=== PATIENT | female | born 1975 | race Caucasian/White ===

== ENCOUNTER 2021-07-27 09:59 | Emergency (ER) | payer OTHER ==
[~2021-07-27] VITALS: Ht 167.6 cm; Wt 92.5 kg
[2021-07-27 10:03] VITALS: BP 130/86
--- NOTE | 2021-07-27 10:10 | NUR ---
PT AMBULATED TO BED 9 WITH STEADY GAIT
--- NOTE | 2021-07-27 10:11 | NUR ---
45/F BIB SELF C/O LEFT SIDED NECK PAIN 6/10 SATYING STILL 10/10 WHEN MOVING X2 WEEKS RADIATING TO HER HEAD AND EAR. DENIES RECENT INJURY OR TRAUMA, DENIES TAKING MEDS FOR PAIN. DENIES DIZZINESS. STATES THAT SHE HAS BLURRING ON VISION, DENIES N/V. FULL ROM OF THE NECK NOTED. MEDHX: HTN, HYPERCHOLESTEROL, DEPRESSION, ANXIETY NKA
--- NOTE | 2021-07-27 10:29 | NUR ---
DR CARBAJAL AT BEDSIDE EVALUATING PT
[2021-07-27] MEDS ORDERED: PROCHLORPERAZINE 10 MG/2 ML VIAL IM ONE (10:40)
[2021-07-27] MEDS ORDERED: ACETAMINOPHEN EXTRA STRENGTH 500 MG TAB PO ONE (10:40)
[2021-07-27] MEDS ORDERED: KETOROLAC 15 MG/ML VIAL IM ONE (10:40)
--- NOTE | 2021-07-27 11:14 | NUR ---
PT VERBALIZED DECREASE IN PAIN SENSATION FROM 10/10 WHEN MOVING TO 5/10, PT ABLE TO PERFORM FULL ROM OF NECK WITH DECREASED PAIN
[2021-07-27 11:58] VITALS: BP 121/75
--- NOTE | 2021-07-27 13:56 | NUR ---
Patient discharged with v/s stable. Written and verbal after care instructions ABOUT CERVIOGENIC HEADACHE given and explained. Patient verbalized understanding. Ambulatory with steady gait. All questions addressed prior to discharge. Advised to follow up with PMD.
== END 2021-07-27 13:56 | disposition home or self-care (01) ==
LOC: MED 09:59
DX: R51.9 Headache, unspecified (principal); I10 Essential (primary) hypertension; F41.9 Anxiety disorder, unspecified; F32.9 Major depressive disorder, single episode, unspecified
CPT/HCPCS: 96372; 99284; J0780; J1885; Q0163

== ENCOUNTER 2022-11-18 12:38 | Emergency (ER) | payer OTHER ==
[~2022-11-18] VITALS: Ht 170.2 cm; Wt 97.5 kg
[2022-11-18 12:49] VITALS: BP 149/79; PULSE 75; RESP 14; TEMP 97.8; O2SAT 96
[2022-11-18] MEDS ORDERED: HYDROcodone/APAP 5/325 MG 1 TAB TAB PO ONE (13:55)
== END 2022-11-18 15:23 | disposition home or self-care (01) ==
LOC: MED 12:38
DX: S83.8X2A Sprain of other specified parts of left knee, initial encounter (principal); W18.30XA Fall on same level, unspecified, initial encounter; Y93.89 Activity, other specified; Y92.89 Other specified places as the place of occurrence of the external cause; Y99.8 Other external cause status
CPT/HCPCS: 73562; 99283

== ENCOUNTER 2023-03-06 14:55 | Emergency (ER) | payer OTHER ==
[~2023-03-06] VITALS: Ht 170.2 cm; Wt 97.1 kg
[2023-03-06 15:44] VITALS: BP 134/82; PULSE 69; RESP 20; TEMP 97.7; O2SAT 99
[2023-03-06] MEDS ORDERED: BPM/-9 PO (15:54)
[2023-03-06] MEDS ORDERED: SUD30 PO (15:55)
[2023-03-06] MEDS ORDERED: CETI10TA81 PO (15:55)
[2023-03-06 16:18] VITALS: BP 134/82; PULSE 69; RESP 20; TEMP 97.7; O2SAT 99
[2023-03-06 16:47] LABS: FLU A ANTIGEN negative (NEGATIVE); FLU B ANTIGEN negative (NEGATIVE)
== END 2023-03-06 16:19 | disposition home or self-care (01) ==
LOC: MED 14:55
DX: J20.9 Acute bronchitis, unspecified (principal); Z20.822 Contact with and (suspected) exposure to COVID-19; I10 Essential (primary) hypertension; J30.9 Allergic rhinitis, unspecified
CPT/HCPCS: 99283

== ENCOUNTER 2023-07-27 12:08 | Emergency (ER) | payer OTHER ==
[~2023-07-27] VITALS: Ht 170.2 cm; Wt 97.5 kg
[~2023-07-27 12:08] MED LIST: BPM/-9 PO; CETI10TA81 PO; SUD30 PO
[2023-07-27 12:35] VITALS: BP 108/69; PULSE 101; RESP 18; TEMP 97.2; O2SAT 96
[2023-07-27] MEDS ORDERED: NAPR-1704 PO (13:51)
[2023-07-27] MEDS ORDERED: LID5T TP (13:51)
[2023-07-27] MEDS: KETOROLAC 30 MG/ML VIAL IM ONE (14:01)
[2023-07-27 14:20] VITALS: BP 151/55; PULSE 73; RESP 18; TEMP 98; O2SAT 95
== END 2023-07-27 14:20 | disposition home or self-care (01) ==
LOC: MED 12:08
DX: S39.012A Strain of muscle, fascia and tendon of lower back, initial encounter (principal); S80.12XA Contusion of left lower leg, initial encounter; I10 Essential (primary) hypertension; Z79.1 Long term (current) use of non-steroidal anti-inflammatories (NSAID); Z79.899 Other long term (current) drug therapy; W18.30XA Fall on same level, unspecified, initial encounter; Y93.89 Activity, other specified; Y92.89 Other specified places as the place of occurrence of the external cause; Y99.8 Other external cause status
CPT/HCPCS: 72100; 73562; 96372; 99284; J1885